=== PATIENT | male | born 1960 | race Caucasian/White ===

== ENCOUNTER 2018-06-19 07:08 | Emergency (ER) | payer BC ==
--- NOTE | 2018-06-19 07:14 | PDOC ---
History of Present Illness - General Chief Complaint: Cold Symptoms Stated Complaint: FLU LIKE SYMPTOMS Time Seen by Provider: 06/19/18 07:13 History Source: Patient Exam Limitations: No Limitations - History of Present Illness Initial Comments: 06/19/18 07:50 CHIEF COMPLAINT: Cough HISTORY OF PRESENT ILLNESS: This is a 57-year-old male with a history of epilepsy (adherent to medication regimen, no seizures for many years) and prior pneumonia who presents with 2 days of body aches/malaise, cough productive of "dark" sputum, throat pain and painful swallowing, and rhinorrhea. He denies travel or sick contacts. He denies chest pain or shortness of breath. Vital signs on arrival are unremarkable. Patient is a one pack per week smoker. Works in computers. REVIEW OF SYSTEMS: GENERAL/CONSTITUTIONAL: No fever or chills. No weakness. No weight change. HEAD, EYES, EARS, NOSE AND THROAT: Throat pain/painful swallowing. Rhinorrhea. CARDIOVASCULAR: No chest pain or palpitations. RESPIRATORY: Cough productive of dark sputum. No wheezing or shortness of breath. GASTROINTESTINAL: No nausea, vomiting, diarrhea or constipation. GENITOURINARY: No dysuria, frequency, or change in urination. MUSCULOSKELETAL: No joint or muscle swelling or pain. No neck or back pain. SKIN: No rash or easy bruising. NEUROLOGIC: Generalized headache. No vertigo, loss of consciousness, or loss of sensation. PSYCHIATRIC: No depression or anxiety. ENDOCRINE: No increased thirst. No abnormal weight change. HEMATOLOGIC/LYMPHATIC: No anemia, easy bleeding, or history of blood clots. ALLERGIC/IMMUNOLOGIC: No hives or skin allergy. No latex allergy. PHYSICAL EXAM: GENERAL: The patient is awake, alert, and fully oriented, in no acute distress. HEAD: Normal with no signs of trauma. ENT: Pupils equal, round and reactive to light, extraocular movements intact, sclera anicteric, conjunctiva clear. Neck supple. Rhinorrhea. Tonsils 3+ and erythematous, no exudates. LUNGS: Clear to auscultation bilaterally. Normal excursion. No respiratory distress or use of accessory muscles. CV: RRR, S1/S2, no MRG. Cap refill < 2 sec. ABDOMEN: Soft, non-distended, non-tender. EXTREMITIES: Normal range of motion, no edema. NEUROLOGICAL: Normal speech, normal gait. CN II-XII grossly intact. PSYCH: Normal mood, normal affect. SKIN: Warm, dry, normal turgor, no rashes or lesions noted. Past History - Past Medical History Allergies/Adverse Reactions: Allergies Allergy/AdvReac Type Severity Reaction Status Date / Time No Known Allergies Allergy Verified 06/19/18 07:10 Home Medications: Ambulatory Orders Phenytoin Na Extended [Dilantin -] 350 mg PO DAILY 12/13/15 Primidone [Mysoline] 200 mg PO BID 12/13/15 levETIRAcetam [Keppra -] 250 mg PO BID 12/13/15 Seizures: Yes - Surgical History Appendectomy: Yes - Suicide/Smoking/Psychosocial Hx Smoking History: Never smoked Hx Alcohol Use: No Drug/Substance Use Hx: No Substance Use Type: None Medical Decision Making - Medical Decision Making 06/19/18 07:54 A/P: 57 year old male with multiple cold symptoms. -Rapid strep (enlarged tonsils, painful swallowing) -Rapid flu -CXR (cough, prior PNA) -Ibuprofen for pain 06/19/18 08:49 Chest x-ray: No acute process Rapid strep: Negative Rapid flu: Negative *DC/Admit/Observation/Transfer Diagnosis at time of Disposition: Viral upper respiratory illness - Discharge Dispostion Disposition: HOME Condition at time of disposition: Stable Decision to Admit order: No - Referrals Referrals: Renan Blanchard MD [Primary Care Provider] - - Patient Instructions Printed Discharge Instructions: DI for Viral Upper Respiratory Infection -- Adult Additional Instructions: -Your chest xray, rapid influenza test, and rapid strep test are all negative -Rest and stay well-hydrated -Take high-dose ibuprofen every 6 hours with food and use nasal spray as prescribed -Follow up with Dr. Nicholson -Return here for difficulty breathing or any other concerning symptoms - Post Discharge Activity Forms/Work/School Notes: Back to Work
[2018-06-19 07:30] VITALS: BP 127/70; PULSE 79; TEMP 98.6; BMI 29.6
[2018-06-19] MEDS ORDERED: IBUPROFEN 600 MG TABLET (FP) PO ONE ×2 (08:49→09:01)
== END 2018-06-19 09:20 | disposition home or self-care (01) ==
LOC: JER 07:08
DX: J06.9 Acute upper respiratory infection, unspecified (principal); B97.89 Other viral agents as the cause of diseases classified elsewhere
CPT/HCPCS: 71046-TC-FY; 87070; 87077; 87430; 87804; 99281-25

== ENCOUNTER 2019-05-26 06:30 | Emergency (ER) | payer BC ==
[2019-05-26 07:28] VITALS: BMI 28.8
--- NOTE | 2019-05-26 07:45 | PDOC ---
History of Present Illness - General Chief Complaint: Cold Symptoms Stated Complaint: S.O.B. Time Seen by Provider: 05/26/19 07:30 History Source: Patient - History of Present Illness Timing/Duration: reports: other Associated Symptoms: reports: cough Past History - Past Medical History Allergies/Adverse Reactions: Allergies Allergy/AdvReac Type Severity Reaction Status Date / Time No Known Allergies Allergy Verified 05/26/19 07:28 Home Medications: Ambulatory Orders Phenytoin Na Extended [Dilantin -] 350 mg PO DAILY 12/13/15 Primidone [Mysoline] 200 mg PO BID 12/13/15 levETIRAcetam [Keppra -] 250 mg PO BID 12/13/15 Fluticasone Prop 0.05% Nasal [Flonase -] 1 - 2 spray NS DAILY #1 spray.pump Ibuprofen [Motrin -] 600 mg PO QID PRN #15 tablet 06/19/18 Albuterol Sulfate Inhaler - [Ventolin HFA Inhaler -] 1 - 2 inh PO Q4H #1 inhaler 05/26/19 Azithromycin 250 mg PO ASDIR #6 tablet 05/26/19 COPD: No Seizures: Yes - Surgical History Appendectomy: Yes - Suicide/Smoking/Psychosocial Hx Smoking History: Unknown if ever smoked Hx Alcohol Use: No Drug/Substance Use Hx: No Substance Use Type: None Respiratory Specific PMHX - Complaint Specific PMHX Angina: No Bronchitis: No Pneumonia: No Pulmonary Embolus: No TB (Tuberculosis): No Review of Systems - Review of Systems Constitutional: No: Chills, Fever Respiratory: Yes: Cough, Shortness of Breath. No: Wheezing, Hemoptysis Cardiac (ROS): No: Chest Pain, Chest Tightness *Physical Exam - Vital Signs Last Vital Signs Temp Pulse Resp BP Pulse Ox 98.3 F 77 14 117/77 94 L 05/26/19 07:05/26/19 07:05/26/19 07:05/26/19 07:05/26/19 07:26 - Physical Exam General Appearance: Yes: Appropriately Dressed. No: Apparent Distress HEENT: positive: Normal Voice Neck: positive: Supple Respiratory/Chest: positive: Lungs Clear, Normal Breath Sounds. negative: Respiratory Distress Cardiovascular: positive: Regular Rate, S1, S2 Integumentary: positive: Dry, Warm Neurologic: positive: Fully Oriented, Alert, Normal Mood/Affect Medical Decision Making - Medical Decision Making 05/26/19 07:42 58 yo M, h/o PNA, smoker (1 pack per week), here w/ sore throat with congestion and productive cough 4 days. Patient also reports possible shortness of breath. No wheezing, chest pain, fever or chills See exam Possibly viral URI, r/o PNA Exam remarkable for 02 sat of 94% on RA, NAD w/ chest/lungs clear -CXR pending 05/26/19 08:30 CXR read as negative. Rpt 02 sat 97% on RA. Pt stable for dc. Will dc w/ zpack and alb pump given tob hx. Will also give pulmonary referral. Smoking cessation strongly encouraged *DC/Admit/Observation/Transfer Diagnosis at time of Disposition: Cough - Discharge Dispostion Disposition: HOME Condition at time of disposition: Good - Prescriptions Prescriptions: Albuterol Sulfate Inhaler - [Ventolin HFA Inhaler -] 1 - 2 inh PO Q4H #1 inhaler Azithromycin 250 mg PO ASDIR #6 tablet - Referrals Referrals: Renan Nicholson MD [Primary Care Provider] - Scott Goff MD, MD [Staff Physician] - - Patient Instructions Printed Discharge Instructions: DI for Viral Upper Respiratory Infection -- Adult Additional Instructions: Your CXR showed no evidence of a pneumonia today. Your oxygen saturation was mildly low in ED initially, which may be due to tobacco history. Please follow-up with pulmonary for further evaluation. Please take antibiotics as prescribed and return to ER for worsening of symptoms - Post Discharge Activity
[2019-05-26 08:29] VITALS: BP 129/97; PULSE 85; TEMP 97.3
== END 2019-05-26 08:37 | disposition home or self-care (01) ==
LOC: JER 06:30
DX: R05 Cough (principal); R56.9 Unspecified convulsions
CPT/HCPCS: 71046-TC-FY; 99282-25

== ENCOUNTER 2025-06-13 07:41 | Emergency (ER) | payer BC ==
[2025-06-13 08:04] VITALS: BP 145/72; PULSE 77; RESP 18; TEMP 98.7; BMI 30.4
[2025-06-13 10:12] LABS: HCV DIAGNOSTIC IN-HOUSE W/RFLX NON-REACTIVE (NONREACTIVE); HIV INTERPRETATION NEGATIVE (NEGATIVE)
== END 2025-06-13 08:38 | disposition home or self-care (01) ==
LOC: JER 07:41 → JERFT 07:41
DX: J02.9 Acute pharyngitis, unspecified (principal); J06.9 Acute upper respiratory infection, unspecified; R09.81 Nasal congestion; R05.9 Cough, unspecified; R06.7 Sneezing
CPT/HCPCS: 36415; 86803; 87389; 87637-QW; 99283-25